=== PATIENT | female | born 1960 | race Caucasian/White ===

== ENCOUNTER 2019-02-10 07:36 | Day surgery (SDC) | payer BC ==
[~2019-02-10] VITALS: Ht 149.9 cm; Wt 76.1 kg
[~2019-02-10 07:36] MED LIST: NO DAILY MEDS
[2019-02-10 08:21] VITALS: Ht 149.9 cm; Wt 76.1 kg
[2019-02-10 08:30] VITALS: BP 161/74; PULSE 69; RESP 18
[2019-02-10] MEDS ORDERED: FENTAnyl 50 MCG/ML VIAL ONE (09:08)
[2019-02-10] MEDS ORDERED: MIDAZOLAM 1 MG/ML 2 ML INJ ONE ×2 (09:08)
[2019-02-10 09:48] VITALS: BP 139/69; RESP 20
== END 2019-02-10 14:26 | disposition home or self-care (01) ==
LOC: GIL 07:36
PROVIDERS: ATTEND Internal Medicine Gastroenterology
DX: Z12.11 Encounter for screening for malignant neoplasm of colon (principal); K64.4 Residual hemorrhoidal skin tags
CPT/HCPCS: 45378; J2250; J3010